=== PATIENT | male | born 2005 | race Hispanic/Latino ===

== ENCOUNTER 2024-06-30 13:59 | Emergency (ER) | payer OTHER, SELFPAY ==
[2024-06-30 14:02] VITALS: BP 145/85
--- NOTE | 2024-06-30 14:16 | ED.GENMED ---
History of Present Illness
General
Chief Complaint: Allergic Reaction
Source: patient
Time Seen by Provider: 06/30/24 14:07
History of Present Illness
History of Present Illness:
18yoM with no significant past medical history presenting with his mother for evaluation of an allergic reaction. Patient ate a pastry around 11am this morning. He started to feel like his throat was scratchy shortly afterwards and then noticed
hives about 10-15 minutes later. He has had similar reactions in the past with tree nuts. His symptoms usually self-resolve but his symptoms continued today so he took 50mg Benadryl about 1 hour ago. He has noticed some improvement with Benadryl but
the rash is still present. He reports feeling a slight throat scratchiness. No dysphagia, dyspnea, vomiting, diarrhea. He has never required epinephrine in the past.
Phy Exam
General Physical Exam
General Presentation: well appearing and no apparent distress
General age: appears stated age
General Skin: warm and dry
General Habitus: normal
General Mental: alert
General Hydration: appears well hydrated
ENT Exam
ENT Exam: pharynx normal, normocephalic and other (No oropharyngeal swelling. Airway patent. Normal phonation. Tolerating oral secretions without difficulty.)
Eye Exam
Eye Exam: conjunctiva normal
Cardiovascular Exam
Cardiovascular Exam: regular rate/rhythm and no murmur
Pulmonary Exam
Pulmonary Exam: lungs clear, no respiratory distress, no rales, no crackles, no rhonchi, no wheezing and other (Lungs CTA without wheezing or stridor. Speaking in full sentences.)
Neurological Exam
Neurological Exam: alert
[place] Coma Scale
Eye Opening: Spontaneous
Verbal Response: Oriented
Motor Response: Obeys Commands
GCS Total Score: 15
Skin Exam
Skin Exam: warm/dry and other (Urticarial rash present to bilateral arms/trunk)
Psychiatric Exam
Psychiatric Exam: normal mood/affect
Course
Orders/Labs/Results
Orders:
Orders
06/30/24 14:13
0.9% Sodium Chloride 500 ml [Nss] 500 ml IV BOLUS
Dexamethasone Sod Phosphate [Decadron] 10 mg IV NOW STA
Famotidine [Pepcid] 20 mg IV NOW STA
Vital Signs
Initial and Last Documented VS:
Initial Vital Signs
Temp Pulse Resp BP Pulse Ox
97.5 F 118 16 145/85 100
06/30/24 14:02 06/30/24 14:02 06/30/24 14:02 06/30/24 14:02 06/30/24 14:02
Last Documented Vital Signs
Temp Pulse Resp BP Pulse Ox
97.5 F 76 12 108/66 96
06/30/24 14:02 06/30/24 15:30 06/30/24 15:30 06/30/24 15:17 06/30/24 15:30
MDM/Problems Addressed
Differential Diagnosis Includes:
18yoM here with an acute allergic reaction after eating a pastry this afternoon. C/o rash, itching, and slight throat scratching. Took Benadryl 1 hour ago with some improvement. VSS and oxygen saturation 100% on room air. There is an urticarial rash
on exam. No oropharyngeal swelling/angioedema noted and airway is patent. Lungs CTA and respirations non-labored.
Presentation consistent with an acute allergic reaction. No evidence of respiratory/GI involvement to suggest anaphylaxis. IV Decadron, Pepcid, and fluid bolus ordered.
*Critical Care Note
Total Time (30-74mins, 75-104mins- exclusive of procedures): Not Applicable
Update Note
Update Note:
Patient reassessed 1 hour post medications. Rash has almost completely resolved and throat symptoms have subsided. Vitals remain normal. He is stable for discharge. Advised Benadryl Q6 PRN and f/u with PCP. Strict ED return precautions discussed
including dysphagia/dyspnea. He expressed understanding and is agreeable to plan. He was discharged in stable condition.
ED Attending Note
-
Portions of this chart may have been created with voice recognition software.� Occasional wrong word or��sound alike� substitutions may have occurred due to the inherent limitations of voice recognition software.
Discharge Plan
Departure
Patient Disposition: Home (Routine Discharge)
Date of Disposition: 06/30/24
Time of Disposition: 15:32
Patient with high blood pressure during this ER visit?: Yes
Discharge Problem:
Acute allergic reaction
Instructions: Hives (DC)
Activity Restrictions/Additional Instructions:
Take Benadryl every 6 hours as needed for rash/itching.
Please follow-up with your family doctor. Return to the ER with any worsening symptoms, trouble breathing, or trouble swallowing.
Interventions
Interventions:
*Risk Screen - Suicide Last Done: 06/30/24 15:22
*General Assessment Last Done: 06/30/24 15:22
*Neglect/Abuse Screening Last Done: 06/30/24 15:22
ED- Fall Risk Assessment Last Done: 06/30/24 14:45
*ED COVID-19 Vaccine History Last Done: 06/30/24 15:22
*Nursing Disposition Last Done: 06/30/24 15:39
ED- Cardiac Assessment Last Done: 06/30/24 14:45
ED- Pulmonary Assessment Last Done: 06/30/24 14:45
ED-Skin Assessment Last Done: 06/30/24 14:45
Discharge Date and Time
Discharge Date/Time: 06/30/24 15:50
Print Language: MALAGASY
[2024-06-30] MEDS: DECADRON 10 MG IV (14:18)
[2024-06-30] MEDS: PEPCID 20 MG IV (14:18)
[2024-06-30] MEDS: NSS 500 IV (14:19)
[2024-06-30 14:45] VITALS: BMI 15.9
[2024-06-30 15:17] VITALS: BP 108/66
== END 2024-06-30 15:50 | disposition home or self-care (01) ==
LOC: EMR 13:59
PROVIDERS: EMERGENCY PHYSICIAN Emergency Medicine
DX: T78.1XXA Other adverse food reactions, not elsewhere classified, initial encounter (principal); R09.89 Other specified symptoms and signs involving the circulatory and respiratory systems; L50.0 Allergic urticaria; X58.XXXA Exposure to other specified factors, initial encounter
CPT/HCPCS: 96374; 96375; 99284